=== PATIENT | male | born 1955 | race Two or more races ===

== ENCOUNTER 2019-04-25 02:46 | Emergency (ER) | payer MEDICAID ==
[~2019-04-25] VITALS: Ht 170.2 cm; Wt 83.9 kg
[~2019-04-25 02:46] MED LIST: ASPI-404 PO
[2019-04-25 04:16] LABS: Basophils # (auto) 0 uL; Basophils % (auto) 0.5 % (0.0-2.0); Eosinophils # (auto) 0.1 uL; Neutrophils % (auto) 83.7 % (37.0-80.0)
[2019-04-25 04:19] LABS: Eosinophils % (auto) 1.6 % (0.0-7.0); Hematocrit 40.8 % (41.0-53.0); Hemoglobin 13.6 g/dL (13.5-17.5); Lymphocytes % (auto) 11.3 % (10.0-50.0); Mean Corpuscular Hemoglobin 26.3 pg (28.0-32.0); Mean Corpuscular Hgb Conc. 33.2 g/dL (32.0-36.0); Mean Corpuscular Volume 79.3 fL (80.0-100.0); Monocytes # (auto) 0.2 uL; Monocytes % (auto) 2.9 % (0.0-12.0); Neutrophils # (auto) 7.2 uL; Platelet Count (auto) 265 10^3/uL (140-450); Red Blood Cells 5.15 10^6/uL (4.5-5.90); Red Cell Distribution Width 18.5 % (11.8-14.3); White Blood Cell 8.6 10^3/uL (4.4-10.8)
[2019-04-25 04:40] LABS: INR 1.05 (0.9-1.15); Partial Thromboplastin Time 23.5 sec (23.64-32.05)
[2019-04-25 04:53] LABS: Alanine Aminotransferase 49 U/L (16-61); Albumin 3.4 g/dL (3.4-5.0); Anion Gap 9 (5-15); Aspartate Aminotransferase 25 U/L (15-37); BUN/Creatinine Ratio 15.8; Blood Urea Nitrogen 19 mg/dL (7-18); Calcium 8.8 mg/dL (8.5-10.1); Carbon Dioxide 23 mmol/L (21-32); Chloride 106 mmol/L (98-107); GFR African American 78 mL/min; GFR Non-African American 65 mL/min; Glucose 174 mg/dL (74-106); Potassium 4.2 mmol/L (3.5-5.1); Sodium 138 mmol/L (136-145)
[2019-04-25 05:00] LABS: Alkaline Phosphatase 100 U/L (45-117); Bilirubin, Total 0.2 mg/dL (0.2-1.0); Total Protein 7.2 g/dL (6.4-8.2)
[2019-04-25 05:05] VITALS: BP 120/85
== END 2019-04-25 05:55 | disposition home or self-care (01) ==
LOC: ER 02:46
DX: R42 Dizziness and giddiness (principal); I10 Essential (primary) hypertension; Z88.0 Allergy status to penicillin; Z79.899 Other long term (current) drug therapy
CPT/HCPCS: 36415; 70450; 71045; 80053; 83880; 84484; 85025; 85610; 85730; 93005

== ENCOUNTER 2019-09-17 09:57 | Emergency (ER) | payer MEDICAID ==
[~2019-09-17] VITALS: Ht 167.6 cm; Wt 83.9 kg
[2019-09-17] MEDS ORDERED: cloNIDine HCL 0.1 MG TAB PO ONE (10:15)
[2019-09-17 11:49] LABS: Basophils # (auto) 0.1 uL; Basophils % (auto) 0.8 % (0.0-2.0); Eosinophils # (auto) 1.3 uL; Eosinophils % (auto) 14.3 % (0.0-7.0); Hematocrit 46.6 % (41.0-53.0); Lymphocytes # (auto) 2.1 uL; Lymphocytes % (auto) 23.1 % (10.0-50.0); Mean Corpuscular Hemoglobin 28.7 pg (28.0-32.0); Mean Corpuscular Hgb Conc. 34.3 g/dL (32.0-36.0); Mean Corpuscular Volume 83.9 fL (80.0-100.0); Monocytes # (auto) 0.8 uL; Monocytes % (auto) 9.3 % (0.0-12.0); Neutrophils # (auto) 4.8 uL; Neutrophils % (auto) 52.5 % (37.0-80.0); Nucleated Red Blood Cells % 0.1 %; Platelet Count (auto) 283 10^3/uL (140-450); Red Blood Cells 5.56 10^6/uL (4.5-5.90); Red Cell Distribution Width 16.1 % (11.8-14.3); White Blood Cell 9.1 10^3/uL (4.4-10.8)
[2019-09-17 11:59] LABS: BUN/Creatinine Ratio 12.7; Calcium 9.7 mg/dL (8.5-10.1); Potassium 4.3 mmol/L (3.5-5.1)
[2019-09-17 12:00] LABS: INR 1.11 (0.9-1.15); Partial Thromboplastin Time 27.8 sec (23.64-32.05)
[2019-09-17 12:16] VITALS: BP 157/90
[2019-09-17] MEDS ORDERED: OXYMETAZOLINE HCL 0.05 % NASAL SPRAY 15ML EACHNOSTRI ONE (12:30)
== END 2019-09-17 12:46 | disposition home or self-care (01) ==
LOC: ER 09:57
DX: R04.0 Epistaxis (principal); I10 Essential (primary) hypertension; Z88.0 Allergy status to penicillin
CPT/HCPCS: 30901; 36415; 80048; 85025; 85610; 85730

== ENCOUNTER 2022-08-12 14:22 | Inpatient (IN) | payer MEDICAID ==
[~2022-08-12] VITALS: Ht 170.2 cm; Wt 89.6 kg
[~2022-08-12 14:22] MED LIST changes: -ASPI-404 PO; +ASPI-543 PO
[2022-08-12] MEDS ORDERED: PANTOPRAZOLE 80 MG in SODIUM CHL 0.9% 100 ML IV ONE (15:15)
[2022-08-12 15:37] LABS: Basophils # (auto) 0.1 10 ^3/uL (0-0.2); Basophils % (auto) 0.7 % (0.0-2.0); Eosinophils # (auto) 0.3 10 ^3/uL (0-0.8); Hemoglobin 9.4 g/dL (13.5-17.5); Lymphocytes # (auto) 2.1 10 ^3/uL (0.4-5.4); Lymphocytes % (auto) 24.4 % (10.0-50.0); Monocytes # (auto) 0.7 10 ^3/uL (0-1.3)
[2022-08-12 15:39] LABS: Eosinophils % (auto) 3.8 % (0.0-7.0); Hematocrit 28.6 % (41.0-53.0); Mean Corpuscular Hgb Conc. 32.8 g/dL (32.0-36.0); Mean Corpuscular Volume 76.3 fL (80.0-100.0); Neutrophils # (auto) 5.3 10 ^3/uL (1.6-8.6); Neutrophils % (auto) 63.1 % (37.0-80.0); Nucleated Red Blood Cells % 0.1 %; Red Blood Cells 3.75 10^6/uL (4.5-5.90); Red Cell Distribution Width 17.8 % (11.8-14.3); White Blood Cell 8.5 10^3/uL (4.4-10.8)
[2022-08-12 15:52] LABS: Albumin 3.5 g/dL (3.4-5.0); Calcium 8.7 mg/dL (8.5-10.1); Potassium 4.2 mmol/L (3.5-5.1)
[2022-08-12 15:56] LABS: BUN/Creatinine Ratio 24.2; Bilirubin, Total 0.4 mg/dL (0.2-1.0)
[2022-08-12] MEDS ORDERED: IOHEXOL 300 MG/ML 100ML BOTTLE IJ ONE (16:57)
[2022-08-12] MEDS ORDERED: HYDROcodone-ACET 5/325MG TAB PO PRN (21:30)
[2022-08-12] MEDS ORDERED: LORazepam 0.5 MG TAB PO PRN (21:30)
[2022-08-12] MEDS ORDERED: MAALOX PLUS or MAALOX 30 ML PO PRN (21:30)
[2022-08-12] MEDS ORDERED: ONDANSETRON HCL 4 MG/2 ML VIAL IV PRN (21:30)
[2022-08-12] MEDS ORDERED: DOCUSATE SOD 100 MG CAP PO PRN (21:30)
[2022-08-12] MEDS ORDERED: MORPHINE SULFATE INJ 2 MG/ml SYRG IV PRN (21:30)
[2022-08-12] MEDS ORDERED: ACETAMINOPHEN 325 MG TAB PO PRN (21:30)
[2022-08-12] MEDS: SODIUM CHLORIDE 0.9% 1,000 ML IV SCH (22:31)
[2022-08-12] MEDS: PANTOPRAZOLE 40 MG/10 ML VIAL INJ IV SCH (22:31)
[2022-08-13 06:22] LABS: Basophils # (auto) 0.1 10 ^3/uL (0-0.2); Basophils % (auto) 0.9 % (0.0-2.0); Eosinophils # (auto) 0.7 10 ^3/uL (0-0.8); Hemoglobin 7.7 g/dL (13.5-17.5); Monocytes # (auto) 0.6 10 ^3/uL (0-1.3); Neutrophils # (auto) 3.6 10 ^3/uL (1.6-8.6); Nucleated Red Blood Cells % 0.1 %; Red Cell Distribution Width 17.8 % (11.8-14.3)
[2022-08-13 06:25] LABS: Eosinophils % (auto) 10.3 % (0.0-7.0); Hematocrit 23.6 % (41.0-53.0); Lymphocytes # (auto) 2.1 10 ^3/uL (0.4-5.4); Lymphocytes % (auto) 29.6 % (10.0-50.0); Mean Corpuscular Hemoglobin 25.1 pg (28.0-32.0); Mean Corpuscular Hgb Conc. 32.7 g/dL (32.0-36.0); Mean Corpuscular Volume 76.5 fL (80.0-100.0); Monocytes % (auto) 8.5 % (0.0-12.0); Neutrophils % (auto) 50.7 % (37.0-80.0); Red Blood Cells 3.08 10^6/uL (4.5-5.90); White Blood Cell 7.1 10^3/uL (4.4-10.8)
[2022-08-13 06:48] LABS: BUN/Creatinine Ratio 20.7; Calcium 8.4 mg/dL (8.5-10.1)
[2022-08-13] MEDS: PANTOPRAZOLE 40 MG/10 ML VIAL INJ IV SCH ×2 (10:18→22:39)
[2022-08-13 10:47] LABS: INR 1.07 (0.9-1.15)
[2022-08-13] MEDS: SODIUM CHLORIDE 0.9% 1,000 ML IV SCH (14:23)
[2022-08-13] MEDS: SUCRALFATE 1 GM/10 ML ORAL SUSP PO SCH ×2 (17:18→22:39)
[2022-08-13 22:00] VITALS: BP 136/87
[2022-08-13 23:24] VITALS: BP 136/87
[2022-08-14 03:36] LABS: Urine Bacteria NONE SEEN /hpf (None Seen); Urine Blood Negative /uL (Negative); Urine Specific Gravity 1.022 (1.001-1.035); Urine WBC <1 /hpf (0 - 3)
[2022-08-14 05:00] VITALS: BP 121/58
[2022-08-14 06:14] LABS: Basophils # (auto) 0.1 10 ^3/uL (0-0.2); Eosinophils # (auto) 0.6 10 ^3/uL (0-0.8); Lymphocytes # (auto) 1.6 10 ^3/uL (0.4-5.4); Monocytes # (auto) 0.5 10 ^3/uL (0-1.3); Neutrophils % (auto) 52.2 % (37.0-80.0); Nucleated Red Blood Cells % 0.1 %
[2022-08-14 06:15] LABS: Basophils % (auto) 1.3 % (0.0-2.0); Eosinophils % (auto) 10.6 % (0.0-7.0); Hematocrit 23.6 % (41.0-53.0); Hemoglobin 7.6 g/dL (13.5-17.5); Lymphocytes % (auto) 27.6 % (10.0-50.0); Mean Corpuscular Hemoglobin 24.8 pg (28.0-32.0); Mean Corpuscular Hgb Conc. 32.3 g/dL (32.0-36.0); Mean Corpuscular Volume 76.8 fL (80.0-100.0); Monocytes % (auto) 8.3 % (0.0-12.0); Red Blood Cells 3.07 10^6/uL (4.5-5.90); White Blood Cell 5.7 10^3/uL (4.4-10.8)
[2022-08-14 06:28] LABS: Calcium 8.5 mg/dL (8.5-10.1); Potassium 3.5 mmol/L (3.5-5.1)
[2022-08-14 06:31] LABS: BUN/Creatinine Ratio 12.2
[2022-08-14] MEDS: SUCRALFATE 1 GM/10 ML ORAL SUSP PO SCH ×4 (07:00→22:09)
[2022-08-14 08:50] VITALS: BP 135/91
[2022-08-14] MEDS ORDERED: MIDAZOLAM HCL 2MG/2ML 2ml VIAL (1mg/ml) ONE (09:15)
[2022-08-14] MEDS ORDERED: LIDOCAINE VISCOUS 2% 15ML UD ONE (09:15)
[2022-08-14] MEDS ORDERED: diphenhdrAMINE HCL 50 MG/1 ML VL ONE (09:15)
[2022-08-14] MEDS: fentaNYL CITRATE 100 MCG/2 ML VL ONE ×2 (09:27→09:30)
[2022-08-14] MEDS ORDERED: GOLYTELY 4L KIT PO ONE (09:45)
[2022-08-14] MEDS: PANTOPRAZOLE 40 MG/10 ML VIAL INJ IV SCH ×2 (10:31→22:09)
[2022-08-14 13:00] VITALS: BP 138/85
[2022-08-14 17:00] VITALS: BP 155/88
[2022-08-14] MEDS: SODIUM CHLORIDE 0.9% 1,000 ML IV SCH ×2 (17:27→23:30)
[2022-08-14 22:00] VITALS: BP 150/99
[2022-08-15 05:00] VITALS: BP 121/84
[2022-08-15 05:57] LABS: Basophils # (auto) 0.1 10 ^3/uL (0-0.2); Eosinophils # (auto) 0.5 10 ^3/uL (0-0.8); Eosinophils % (auto) 9.3 % (0.0-7.0); Lymphocytes # (auto) 1.4 10 ^3/uL (0.4-5.4); Monocytes # (auto) 0.5 10 ^3/uL (0-1.3); Neutrophils # (auto) 2.9 10 ^3/uL (1.6-8.6); Red Cell Distribution Width 18.2 % (11.8-14.3)
[2022-08-15 06:00] LABS: Hematocrit 23.5 % (41.0-53.0); Hemoglobin 7.9 g/dL (13.5-17.5); Lymphocytes % (auto) 26.6 % (10.0-50.0); Mean Corpuscular Hemoglobin 25.7 pg (28.0-32.0); Mean Corpuscular Hgb Conc. 33.7 g/dL (32.0-36.0); Mean Corpuscular Volume 76.3 fL (80.0-100.0); Monocytes % (auto) 8.9 % (0.0-12.0); Neutrophils % (auto) 54.2 % (37.0-80.0); Nucleated Red Blood Cells % 0.1 %; Red Blood Cells 3.07 10^6/uL (4.5-5.90); White Blood Cell 5.4 10^3/uL (4.4-10.8)
[2022-08-15] MEDS ORDERED: GOLYTELY 4L KIT PO ONE (06:00)
[2022-08-15 06:14] LABS: Calcium 8.9 mg/dL (8.5-10.1); Potassium 3.5 mmol/L (3.5-5.1)
[2022-08-15 06:17] LABS: BUN/Creatinine Ratio 9.6
[2022-08-15] MEDS: SUCRALFATE 1 GM/10 ML ORAL SUSP PO SCH ×3 (06:39→17:00)
[2022-08-15] MEDS ORDERED: NALOXONE HCL 0.4 MG/ML VIAL ONE (08:35)
[2022-08-15] MEDS ORDERED: diphenhdrAMINE HCL 50 MG/1 ML VL ONE (08:35)
[2022-08-15] MEDS ORDERED: FLUMAZENIL 0.1 MG/ML INJ 10ML MDV IV ONE (08:35)
[2022-08-15 09:00] VITALS: BP 148/92
[2022-08-15] MEDS: PANTOPRAZOLE 40 MG/10 ML VIAL INJ IV SCH (09:37)
[2022-08-15] MEDS: fentaNYL CITRATE 100 MCG/2 ML VL ONE ×2 (12:10→12:15)
[2022-08-15] MEDS: MIDAZOLAM HCL 2MG/2ML 2ml VIAL (1mg/ml) ONE ×2 (12:10→12:15)
[2022-08-15] MEDS ORDERED: FER325T PO (13:20)
[2022-08-15 14:33] VITALS: BP 130/86
[2022-08-15] MEDS: SODIUM CHLORIDE 0.9% 1,000 ML IV SCH (16:12)
[2022-08-15 17:00] VITALS: BP 134/94
== END 2022-08-15 17:15 | disposition home or self-care (01) | DRG 241 ==
LOC: ER 14:22 → TELE 21:23 → TELE-WESTW 08-13 21:35
PROVIDERS: ADMIT Hospitalist; ATTEND Student in an Organized Health Care Education/Training Program
PROC: 0DB68ZX Excision of Stomach, Via Natural or Artificial Opening Endoscopic, Diagnostic (ICD-10-PCS; principal; 2022-08-14 09:27)
PROC: 0DBQ8ZZ Excision of Anus, Via Natural or Artificial Opening Endoscopic (ICD-10-PCS; 2022-08-15)
DX: K29.71 Gastritis, unspecified, with bleeding (principal); K57.31 Diverticulosis of large intestine without perforation or abscess with bleeding; D50.0 Iron deficiency anemia secondary to blood loss (chronic); K80.20 Calculus of gallbladder without cholecystitis without obstruction; Z20.822 Contact with and (suspected) exposure to COVID-19; E66.9 Obesity, unspecified; I10 Essential (primary) hypertension; K62.0 Anal polyp; K62.1 Rectal polyp; K64.8 Other hemorrhoids; Z68.30 Body mass index [BMI] 30.0-30.9, adult; Z88.0 Allergy status to penicillin
CPT/HCPCS: 36415; 43239; 45385; 71045; 74177; 80048; 80053; 81001; 85025; 85610; 86850; 86900; 86901; 87426; 93005; 96365; 96366; C9113; G0378; J2250

== ENCOUNTER 2023-01-05 17:58 | Emergency (ER) | payer MEDICAID ==
[~2023-01-05] VITALS: Ht 170.2 cm; Wt 91.3 kg
[~2023-01-05 17:58] MED LIST changes: -ASPI-543 PO; +FER325T PO
[2023-01-05 18:30] VITALS: BP 127/85
[2023-01-05 19:50] LABS: Albumin 3.2 g/dL (3.4-5.0); Potassium 4.3 mmol/L (3.5-5.1)
[2023-01-05 19:52] LABS: INR 1.04 (0.9-1.15)
[2023-01-05 19:53] LABS: Bilirubin, Total 0.2 mg/dL (0.2-1.0); Total Protein 7.4 g/dL (6.4-8.2)
[2023-01-05 20:05] LABS: Basophils # (auto) 0.1 10 ^3/uL (0-0.2); Basophils % (auto) 0.7 % (0.0-2.0); Eosinophils # (auto) 0.8 10 ^3/uL (0-0.8); Eosinophils % (auto) 9.6 % (0.0-7.0); Hematocrit 34.7 % (41.0-53.0); Hemoglobin 11.2 g/dL (13.5-17.5); Lymphocytes # (auto) 1.1 10 ^3/uL (0.4-5.4); Lymphocytes % (auto) 13.3 % (10.0-50.0); Mean Corpuscular Hemoglobin 23.1 pg (28.0-32.0); Mean Corpuscular Hgb Conc. 32.2 g/dL (32.0-36.0); Mean Corpuscular Volume 71.8 fL (80.0-100.0); Monocytes # (auto) 0.5 10 ^3/uL (0-1.3); Monocytes % (auto) 5.6 % (0.0-12.0); Neutrophils # (auto) 5.9 10 ^3/uL (1.6-8.6); Neutrophils % (auto) 70.8 % (37.0-80.0); Red Blood Cells 4.83 10^6/uL (4.5-5.90); White Blood Cell 8.3 10^3/uL (4.4-10.8)
[2023-01-05 20:07] LABS: Urine Bacteria NONE SEEN /hpf (None Seen); Urine Blood Negative /uL (Negative); Urine Hyaline Cast FEW /lpf (0 - 2); Urine Mucus FEW (None Seen); Urine Specific Gravity 1.036 (1.001-1.035); Urine WBC 1 /hpf (0 - 3)
[2023-01-05 20:13] LABS: Red Cell Distribution Width 28.2 % (11.8-14.3)
== END 2023-01-06 05:31 | disposition home or self-care (01) ==
LOC: ER 17:58
DX: K92.2 Gastrointestinal hemorrhage, unspecified (principal); I10 Essential (primary) hypertension; Z88.0 Allergy status to penicillin
CPT/HCPCS: 36415; 80053; 81001; 83605; 83690; 85025; 85610; 85730; 86850; 86900; 86901

== ENCOUNTER 2023-05-08 10:16 | Inpatient (IN) | payer MEDICAID ==
[~2023-05-08] VITALS: Ht 170.2 cm; Wt 87.7 kg
[2023-05-08] MEDS ORDERED: SODIUM CHLORIDE 0.9% 500 ML IV ONE (10:45)
[2023-05-08 11:12] LABS: Basophils # (auto) 0.1 10 ^3/uL (0-0.2); Eosinophils # (auto) 0.4 10 ^3/uL (0-0.8); Eosinophils % (auto) 4.5 % (0.0-7.0); Hemoglobin 13.4 g/dL (13.5-17.5); Monocytes # (auto) 0.4 10 ^3/uL (0-1.3)
[2023-05-08 11:15] LABS: Basophils % (auto) 0.9 % (0.0-2.0); Hematocrit 41.6 % (41.0-53.0); Lymphocytes % (auto) 11.9 % (10.0-50.0); Mean Corpuscular Hgb Conc. 32.2 g/dL (32.0-36.0); Mean Corpuscular Volume 80.8 fL (80.0-100.0); Monocytes % (auto) 4.5 % (0.0-12.0); Neutrophils # (auto) 6.8 10 ^3/uL (1.6-8.6); Neutrophils % (auto) 78.2 % (37.0-80.0); Red Blood Cells 5.15 10^6/uL (4.5-5.90); Red Cell Distribution Width 16.9 % (11.8-14.3); White Blood Cell 8.7 10^3/uL (4.4-10.8)
[2023-05-08 11:44] LABS: INR 1.12 (0.9-1.15); Partial Thromboplastin Time 24.2 SEC (24.5-34.5); Prothrombin Time 11.7 sec (9.3-11.8)
[2023-05-08 11:57] LABS: Alanine Aminotransferase 24 U/L (7-40); Albumin 4.4 g/dL (3.2-4.8); Alkaline Phosphatase 104 U/L (46-116); Anion Gap 5 (5-15); Aspartate Aminotransferase 14 U/L (13-40); BUN/Creatinine Ratio 11.4 (10.0-20.0); Blood Urea Nitrogen 15 mg/dL (9-23); Calcium 9.7 mg/dL (8.7-10.4); Carbon Dioxide 28 mmol/L (20-30); Chloride 102 mmol/L (98-107); Glucose 222 mg/dL (74-106); Potassium 4.1 mmol/L (3.5-5.1); Sodium 135 mmol/L (136-145)
[2023-05-08 11:58] LABS: Bilirubin, Total 0.8 mg/dL (0.2-1.0); Total Protein 7.7 g/dL (5.7-8.2)
[2023-05-08] MEDS ORDERED: DOCUSATE SOD 100 MG CAP PO PRN (13:00)
[2023-05-08] MEDS ORDERED: ONDANSETRON HCL 4 MG/2 ML VIAL IV PRN (13:00)
[2023-05-08] MEDS ORDERED: MORPHINE SULFATE INJ 2 MG/ml SYRG IV PRN (13:00)
[2023-05-08] MEDS ORDERED: NITROGLYCERIN 0.4 MG SL TAB SL PRN (13:00)
[2023-05-08] MEDS ORDERED: hydrALAZINE HCL 20 MG/ML VL IV PRN (13:15)
[2023-05-08] MEDS ORDERED: SODIUM CHLORIDE 0.9% 1,000 ML IV ONE (13:15)
[2023-05-08] MEDS ORDERED: FERR325T20 PO (13:18)
[2023-05-08 16:01] LABS: COVID19 ANTIGEN SOFIA FIA NEGATIVE (NEGATIVE)
[2023-05-08] MEDS: SUCRALFATE 1 GM TAB PO SCH ×2 (17:09→22:40)
[2023-05-08 20:05] VITALS: PULSE 95; RESP 25; O2SAT 93
[2023-05-08 21:12] VITALS: BP 120/90; PULSE 94; RESP 16; TEMP 98.1; O2SAT 92
[2023-05-08] MEDS ORDERED: ASPI81CH59 PO ×2 (21:45→23:00)
[2023-05-08] MEDS ORDERED: PATIENTS OWN MEDICATION (Ferrous Sulfate (Ferosul) 1 TAB) PO SCH (22:00)
[2023-05-08] MEDS: FERROUS SULFATE 325mg EC TAB PO SCH (22:41)
[2023-05-08] MEDS: PANTOPRAZOLE 40 MG/10 ML VIAL INJ IV SCH (22:41)
[2023-05-08] MEDS ORDERED: PROP1TAB53 PO (23:03)
[2023-05-09] VITALS (7 sets, daily range): BP systolic 113–132; BP diastolic 77–87; PULSE 70–92; RESP 16–18; TEMP 97.8–98.4; O2SAT 92–95
[2023-05-09] MEDS: SUCRALFATE 1 GM TAB PO SCH ×4 (05:46→21:14)
[2023-05-09 06:15] LABS: Basophils # (auto) 0 10 ^3/uL (0-0.2); Basophils % (auto) 0.5 % (0.0-2.0); Eosinophils # (auto) 0.9 10 ^3/uL (0-0.8); Lymphocytes # (auto) 1.6 10 ^3/uL (0.4-5.4); Mean Corpuscular Hgb Conc. 32.3 g/dL (32.0-36.0); Monocytes # (auto) 0.6 10 ^3/uL (0-1.3)
[2023-05-09 06:19] LABS: Eosinophils % (auto) 10.1 % (0.0-7.0); Hemoglobin 10.4 g/dL (13.5-17.5); Lymphocytes % (auto) 18.1 % (10.0-50.0); Mean Corpuscular Hemoglobin 25.9 pg (28.0-32.0); Mean Corpuscular Volume 80.2 fL (80.0-100.0); Monocytes % (auto) 7.2 % (0.0-12.0); Neutrophils # (auto) 5.7 10 ^3/uL (1.6-8.6); Neutrophils % (auto) 64.1 % (37.0-80.0); Nucleated Red Blood Cells % 0.1 %; Red Blood Cells 3.99 10^6/uL (4.5-5.90); Red Cell Distribution Width 16.9 % (11.8-14.3)
[2023-05-09 06:22] LABS: Alanine Aminotransferase 18 U/L (7-40); Albumin 3.4 g/dL (3.2-4.8); Alkaline Phosphatase 75 U/L (46-116); Anion Gap 5 (5-15); Aspartate Aminotransferase 15 U/L (13-40); BUN/Creatinine Ratio 15.8 (10.0-20.0); Bilirubin, Total 0.5 mg/dL (0.2-1.0); Blood Urea Nitrogen 15 mg/dL (9-23); Calcium 8.9 mg/dL (8.5-10.1); Carbon Dioxide 26 mmol/L (20-30); Chloride 109 mmol/L (98-107); Cholesterol 130 mg/dL (< 200); HDL Cholesterol 31 mg/dL (40-59); LDL Cholesterol 83 mg/dL (< 100); Potassium 4.4 mmol/L (3.5-5.1); Sodium 140 mmol/L (136-145); Triglycerides 139 mg/dL (< 150)
[2023-05-09 06:23] LABS: Glucose 118 mg/dL (74-106); Total Protein 5.8 g/dL (5.7-8.2)
[2023-05-09] MEDS: PANTOPRAZOLE 40 MG/10 ML VIAL INJ IV SCH ×2 (11:52→21:14)
[2023-05-09] MEDS: FERROUS SULFATE 325mg EC TAB PO SCH ×2 (11:52→21:14)
[2023-05-09] MEDS ORDERED: FERR325T24 PO (16:03)
[2023-05-09] MEDS ORDERED: ASPI-543 PO (16:03)
[2023-05-09] MEDS ORDERED: PROP1TAB53 PO (16:03)
[2023-05-10] VITALS (7 sets, daily range): BP systolic 0–144; BP diastolic 83–103; PULSE 70–95; RESP 18–19; TEMP 97.6–98.7; O2SAT 92–95
[2023-05-10 05:53] LABS: Basophils # (auto) 0.1 10 ^3/uL (0-0.2); Eosinophils # (auto) 1.1 10 ^3/uL (0-0.8); Eosinophils % (auto) 13.9 % (0.0-7.0); Lymphocytes # (auto) 1.7 10 ^3/uL (0.4-5.4); Mean Corpuscular Volume 79.4 fL (80.0-100.0); Monocytes # (auto) 0.6 10 ^3/uL (0-1.3)
[2023-05-10 05:56] LABS: Basophils % (auto) 0.8 % (0.0-2.0); Hematocrit 29.6 % (41.0-53.0); Hemoglobin 9.9 g/dL (13.5-17.5); Lymphocytes % (auto) 22.6 % (10.0-50.0); Mean Corpuscular Hemoglobin 26.4 pg (28.0-32.0); Mean Corpuscular Hgb Conc. 33.2 g/dL (32.0-36.0); Monocytes % (auto) 7.3 % (0.0-12.0); Neutrophils # (auto) 4.2 10 ^3/uL (1.6-8.6); Neutrophils % (auto) 55.4 % (37.0-80.0); Red Blood Cells 3.73 10^6/uL (4.5-5.90); Red Cell Distribution Width 16.9 % (11.8-14.3); White Blood Cell 7.6 10^3/uL (4.4-10.8)
[2023-05-10] MEDS: SUCRALFATE 1 GM TAB PO SCH ×4 (06:02→22:02)
[2023-05-10 06:06] LABS: Anion Gap 3 (5-15); Carbon Dioxide 28 mmol/L (20-30); Chloride 107 mmol/L (98-107); Potassium 3.9 mmol/L (3.5-5.1); Sodium 138 mmol/L (136-145)
[2023-05-10 06:07] LABS: Calcium 8.9 mg/dL (8.7-10.4)
[2023-05-10 06:11] LABS: Folate (Folic Acid) 16.38 ng/mL (>5.38); Glucose 117 mg/dL (74-106)
[2023-05-10 06:12] LABS: BUN/Creatinine Ratio 13.2 (10.0-20.0); Blood Urea Nitrogen 12 mg/dL (9-23); Ferritin 7.2 ng/mL (22-322)
[2023-05-10] MEDS: PANTOPRAZOLE 40 MG/10 ML VIAL INJ IV SCH ×2 (10:05→22:02)
[2023-05-10] MEDS: B-COMPLEX W/ C & FOLIC ACID(NEPHROVITE TAB) PO SCH (10:05)
[2023-05-10] MEDS: FERROUS SULFATE 325mg EC TAB PO SCH ×2 (10:05→22:02)
[2023-05-10] MEDS: PROPRANOLOL HCL 20 MG TAB PO SCH (10:06)
[2023-05-11 05:00] VITALS: BP 126/90; PULSE 74; RESP 19; TEMP 98.5; O2SAT 94
[2023-05-11] MEDS: SUCRALFATE 1 GM TAB PO SCH ×4 (06:25→21:34)
[2023-05-11 06:32] LABS: Hematocrit 32.1 % (41.0-53.0); Hemoglobin 10.5 g/dL (13.5-17.5); Mean Corpuscular Hemoglobin 26.3 pg (28.0-32.0); Mean Corpuscular Hgb Conc. 32.5 g/dL (32.0-36.0); Red Blood Cells 3.97 10^6/uL (4.5-5.90); Red Cell Distribution Width 16.9 % (11.8-14.3)
[2023-05-11 06:35] LABS: Band Neutrophils % (manual) 0; Basophils % (manual) 0 (0.0-2.0); Blast Cells 0; Metamyelocytes % 0; Myelocytes % 0; Promyelocytes % 0; Reactive Lymphocytes 0
[2023-05-11 07:11] LABS: Alanine Aminotransferase 20 U/L (7-40); Albumin 3.9 g/dL (3.2-4.8); Alkaline Phosphatase 88 U/L (46-116); Anion Gap 6 (5-15); BUN/Creatinine Ratio 7.1 (10.0-20.0); Blood Urea Nitrogen 7 mg/dL (9-23); Calcium 9.4 mg/dL (8.7-10.4); Carbon Dioxide 28 mmol/L (20-30); Chloride 105 mmol/L (98-107); Glucose 108 mg/dL (74-106); Potassium 3.8 mmol/L (3.5-5.1); Sodium 139 mmol/L (136-145)
[2023-05-11 07:12] LABS: Aspartate Aminotransferase 13 U/L (13-40); Bilirubin, Total 0.5 mg/dL (0.2-1.0); Total Protein 6.7 g/dL (5.7-8.2)
[2023-05-11 08:00] VITALS: PULSE 68; PULSE 97; RESP 17; O2SAT 92
[2023-05-11] MEDS ORDERED: NALOXONE HCL 0.4 MG/ML VIAL ONE (08:19)
[2023-05-11] MEDS ORDERED: FLUMAZENIL 0.1 MG/ML INJ 10ML MDV IV ONE (08:19)
[2023-05-11] MEDS ORDERED: LIDOCAINE VISCOUS 2% 15ML UD ONE (08:19)
[2023-05-11] MEDS ORDERED: SODIUM CHLORIDE LOCK 10 ML ONE (08:19)
[2023-05-11] MEDS ORDERED: MIDAZOLAM HCL 5 MG/ML-1ML VIAL ONE (08:20)
[2023-05-11] MEDS ORDERED: fentaNYL CITRATE 100 MCG/2 ML VL ONE (08:20)
[2023-05-11] MEDS ORDERED: diphenhdrAMINE HCL 50 MG/1 ML VL ONE (08:20)
[2023-05-11 09:21] LABS: Eosinophils % (manual) 26 (0-7); Lymphocytes % (manual) 27 (10.0-50.0); Monocytes % (manual) 4 (0-12)
[2023-05-11 09:22] LABS: Platelet Estimate Adequate
[2023-05-11 09:38] VITALS: BP 134/94; PULSE 73; RESP 18; TEMP 98.3; O2SAT 96
[2023-05-11] MEDS: PANTOPRAZOLE 40 MG/10 ML VIAL INJ IV SCH ×2 (10:00→21:33)
[2023-05-11] MEDS: FERROUS SULFATE 325mg EC TAB PO SCH ×2 (10:00→21:34)
[2023-05-11] MEDS: B-COMPLEX W/ C & FOLIC ACID(NEPHROVITE TAB) PO SCH (10:00)
[2023-05-11] MEDS: PROPRANOLOL HCL 20 MG TAB PO SCH (10:00)
[2023-05-11 13:38] VITALS: BP 138/95; PULSE 76; RESP 17; TEMP 98.7; O2SAT 98
[2023-05-11 20:00] VITALS: PULSE 70; PULSE 95; RESP 18; O2SAT 96
[2023-05-11 22:00] VITALS: BP 114/80; PULSE 75; RESP 20; TEMP 98.1; O2SAT 93
[2023-05-12 05:00] VITALS: BP 122/90; PULSE 75; RESP 18; TEMP 97.9; O2SAT 90
[2023-05-12] MEDS: SUCRALFATE 1 GM TAB PO SCH (06:01)
[2023-05-12 06:20] LABS: Hematocrit 34.2 % (41.0-53.0); Mean Corpuscular Hemoglobin 26.5 pg (28.0-32.0); Mean Corpuscular Hgb Conc. 32.2 g/dL (32.0-36.0); Mean Corpuscular Volume 82.3 fL (80.0-100.0); Red Blood Cells 4.16 10^6/uL (4.5-5.90); Red Cell Distribution Width 17.1 % (11.8-14.3)
[2023-05-12 06:26] LABS: Alanine Aminotransferase 22 U/L (7-40); Albumin 3.9 g/dL (3.2-4.8); Alkaline Phosphatase 90 U/L (46-116); Anion Gap 8 (5-15); Aspartate Aminotransferase 18 U/L (13-40); BUN/Creatinine Ratio 10.6 (10.0-20.0); Blood Urea Nitrogen 11 mg/dL (9-23); Calcium 9.1 mg/dL (8.7-10.4); Carbon Dioxide 26 mmol/L (20-30); Chloride 103 mmol/L (98-107); Glucose 109 mg/dL (74-106); Potassium 3.9 mmol/L (3.5-5.1); Sodium 137 mmol/L (136-145)
[2023-05-12 06:27] LABS: Bilirubin, Total 0.4 mg/dL (0.2-1.0); Total Protein 6.7 g/dL (5.7-8.2)
[2023-05-12 06:38] LABS: Basophils % (manual) 0 (0.0-2.0); Blast Cells 0; Metamyelocytes % 0; Myelocytes % 0; Promyelocytes % 0; Reactive Lymphocytes 0
[2023-05-12 08:00] VITALS: PULSE 73
[2023-05-12 08:30] VITALS: BP 165/105; PULSE 101; RESP 20; TEMP 98
[2023-05-12 09:00] VITALS: BP 150/94; PULSE 101; RESP 20; TEMP 98; O2SAT 93
[2023-05-12 09:23] LABS: Band Neutrophils % (manual) 1; Eosinophils % (manual) 9 (0-7); Lymphocytes % (manual) 29 (10.0-50.0); Monocytes % (manual) 1 (0-12); Platelet Estimate Adequate
[2023-05-12] MEDS: PANTOPRAZOLE 40 MG/10 ML VIAL INJ IV SCH (09:56)
[2023-05-12] MEDS: FERROUS SULFATE 325mg EC TAB PO SCH (09:56)
[2023-05-12] MEDS: B-COMPLEX W/ C & FOLIC ACID(NEPHROVITE TAB) PO SCH (09:58)
[2023-05-12] MEDS: PROPRANOLOL HCL 20 MG TAB PO SCH (09:58)
[2023-05-12] MEDS ORDERED: PANT40TA2 PO ×3 (11:11→11:12)
[2023-05-12] MEDS ORDERED: SUCR1TAB PO (11:11)
[2023-05-12 13:23] VITALS: BP 144/96; PULSE 89; RESP 19; TEMP 98.1; O2SAT 95
[2023-05-12 14:30] VITALS: BP 144/87; PULSE 101; RESP 18; TEMP 98
== END 2023-05-12 15:00 | disposition home or self-care (01) | DRG 241 ==
LOC: ER 10:16 → TELE 13:14 → TELE-EAST 20:55
PROVIDERS: ADMIT Internal Medicine; ATTEND Student in an Organized Health Care Education/Training Program
PROC: 0DB68ZX Excision of Stomach, Via Natural or Artificial Opening Endoscopic, Diagnostic (ICD-10-PCS; 2023-05-11)
PROC: 0DB98ZX Excision of Duodenum, Via Natural or Artificial Opening Endoscopic, Diagnostic (ICD-10-PCS; principal; 2023-05-11 14:22)
DX: K29.71 Gastritis, unspecified, with bleeding (principal); N17.0 Acute kidney failure with tubular necrosis; K25.4 Chronic or unspecified gastric ulcer with hemorrhage; K76.6 Portal hypertension; I50.32 Chronic diastolic (congestive) heart failure; K80.20 Calculus of gallbladder without cholecystitis without obstruction; R79.89 Other specified abnormal findings of blood chemistry; E66.9 Obesity, unspecified; K31.9 Disease of stomach and duodenum, unspecified; I11.0 Hypertensive heart disease with heart failure; D64.9 Anemia, unspecified; Z20.822 Contact with and (suspected) exposure to COVID-19; H53.8 Other visual disturbances; N40.0 Benign prostatic hyperplasia without lower urinary tract symptoms; R73.03 Prediabetes; K57.31 Diverticulosis of large intestine without perforation or abscess with bleeding; R55 Syncope and collapse; E53.8 Deficiency of other specified B group vitamins; Z79.82 Long term (current) use of aspirin; Z88.0 Allergy status to penicillin; Z95.5 Presence of coronary angioplasty implant and graft; Z87.19 Personal history of other diseases of the digestive system; Z68.30 Body mass index [BMI] 30.0-30.9, adult; Z71.3 Dietary counseling and surveillance
CPT/HCPCS: 36415; 70450; 71046; 74176; 80048; 80053; 80061; 82270; 82607; 82728; 82746; 83036; 83735; 83880; 84443; 84484; 85007; 85025; 85027; 85610; 85730; 86850; 86900; 86901; 87426; 93005; 93306; 93886; C9113; G0378; J2250